=== PATIENT | female | born 1945 | race Caucasian/White ===

== ENCOUNTER 2016-03-13 09:35 | Day surgery (SDC) | payer MEDICARE, MEDICAID ==
[~2016-03-13] VITALS: Ht 167.6 cm; Wt 89.6 kg
[~2016-03-13 09:35] MED LIST: ASPIRIN 81M81 MG/TA2 PO; ATENOLOL50 MG PO; BACTROBAN NASA0.9 GM NS; BENADRYL25 M2 PO; BIOTIN1000 MCG PO; CALCIUM1 CAP PO; CELEXA10 MG PO; CEPHALEXIN500 M1 PO; CIPRO 500MG TA500 MG PO; CLONAZEPAM1 MG PO; COMBIVENT INH14.7 GM IH; DALIRESP500 MCG PO; DHEA50 M1 PO; FAMILY PHARMACY99 MG PO; FIORICET 325 MG1 TA1 PO; FIORINAL 325 MG1 CAP PO; FIORINAL PO; FLONASE NASAL S16 GM NS; IBU800 M1 PO; IMITREX50 MG PO; IMODIUM 2MG CAPS2 MG PO; IMODIUM A-D2 M1 PO; KLONOPIN2 MG PO; KLOR-CON 1010 MEQ PO; LACTOSE 260 MG1 CAP PO; LATUDA80 MG PO; LEVOTHYROXIN0.025 MG PO; LIDODERM 5% PATC1 EA TP; LIPITOR 10MG10 MG PO; LIPITOR20 MG PO; MELATONIN1 MG PO; MICRO-K 1010 MEQ PO; MINOCIN 50M50 MG/CAP PO; MONUROL 3 GM3 G/PKT PO; MUCINEX 60600 MG/TA1 PO; MULTIPLE VITAMI1 CAP PO; NASONEX SPRAY17 GM NS; NEURONTIN300 MG/CAP PO; NORCO 325 MG-51 TAB PO; OMEPRAZOLE20 MG PO; PHARMASSURE ZIN50 MG PO; PRIL40 PO; PRILOSEC 20MG20 MG PO; PROVENTIL0.09 MG/A1 IH; REMERON30 MG PO; RT SPIRIVA18 MCG IH; SEROQUEL 1100 MG/TAB PO; SEROQUEL 2525 MG/TAB PO; SEROQUEL300 MG PO; SERTRALINE25 MG PO; SINGULAIR 110 MG/TAB PO; SYMMETREL100 M1 PO; SYNTHROID 0.0.025 MG PO; SYNTHROID0.1 MG/TAB PO; SYNTHROID0.112 MG/T PO; SYNTHROID0.175 MG PO; TOPAMAX200 MG PO; UNABLE; VALERIAN500 MG PO; VITAMIN B COMPL1 TA1 PO; VOLTAREN GEL 1%1 TU TP; ZESTRIL 5MG5 MG PO; ZOLOFT 50MG50 MG PO; [UNRECOGNIZED DRUG - OTHER] PO; [UNRECOGNIZED DRUG - OTHER] PO; [UNRECOGNIZED DRUG - OTHER] PO
[2016-03-13 10:02] VITALS: BP 151/86; PULSE 73; TEMP 97.3
[2016-03-13 11:10] VITALS: BP 132/61; PULSE 72
[2016-03-13 11:25] VITALS: BP 136/61; PULSE 70
[2016-03-13 11:40] VITALS: BP 134/61; PULSE 73
[2016-03-13 11:55] VITALS: BP 149/64; PULSE 70
== END 2016-03-13 12:05 | disposition home or self-care (01) ==
LOC: SDCO 09:35
DX: R05 Cough (principal); R09.89 Other specified symptoms and signs involving the circulatory and respiratory systems; R06.02 Shortness of breath; F17.210 Nicotine dependence, cigarettes, uncomplicated; G47.33 Obstructive sleep apnea (adult) (pediatric)
CPT/HCPCS: J2704; J7030

== ENCOUNTER 2016-03-28 08:47 | Day surgery (SDC) | payer MEDICARE, MEDICAID ==
[~2016-03-28] VITALS: Ht 167.6 cm; Wt 88.2 kg
[2016-03-28 09:35] VITALS: BP 110/46; PULSE 79; TEMP 97.7
[2016-03-28] MEDS ORDERED: SYNTHROID0.125 MG/T PO (09:40)
[2016-03-28] MEDS ORDERED: KLONOPIN 1MG1 MG PO (09:41)
[2016-03-28] MEDS ORDERED: ZANAFLEX2 MG PO (09:42)
[2016-03-28] MEDS ORDERED: DITROPAN XL 5MG5 M1 PO (09:48)
[2016-03-28] MEDS ORDERED: CELEXA10 MG PO (09:49)
[2016-03-28] MEDS ORDERED: NASONEX SPRAY17 GM NS (09:49)
[2016-03-28] MEDS ORDERED: SPIRIVA RE2.5 MCG/Ac IH (09:50)
[2016-03-28] MEDS ORDERED: COMBIRESP IH (09:51)
[2016-03-28] MEDS ORDERED: CENTRUM SILVER1 TAB PO (09:53)
[2016-03-28] MEDS ORDERED: MILK THISTLE E140 M1 PO (09:54)
[2016-03-28] MEDS ORDERED: MELATONIN5 M1 SL (09:54)
[2016-03-28] MEDS ORDERED: HYDROCHLORIDE PO (09:56)
[2016-03-28] MEDS ORDERED: ANUSOL HC CREAM30 GM TP (09:56)
[2016-03-28] MEDS ORDERED: ORAL PAIN REL9.35 GM MM (09:57)
[2016-03-28] MEDS ORDERED: [UNRECOGNIZED DRUG - OTHER] TP (10:05)
[2016-03-28] MEDS ORDERED: DESENEX21 TOP (10:06)
[2016-03-28] MEDS ORDERED: TYLENOL PM EXTR1 TA1 PO (10:07)
[2016-03-28] MEDS ORDERED: BENADRYL ALLERG25 M2 PO (10:07)
[2016-03-28 10:55] VITALS: BP 106/59; PULSE 77; TEMP 97.6
[2016-03-28 11:10] VITALS: BP 100/68; PULSE 83
[2016-03-28 11:25] VITALS: BP 111/63; PULSE 79
[2016-03-28 11:40] VITALS: BP 94/57; PULSE 79
== END 2016-03-28 12:10 | disposition home or self-care (01) ==
LOC: SDCO 08:47
DX: R05 Cough (principal); R06.00 Dyspnea, unspecified; R09.89 Other specified symptoms and signs involving the circulatory and respiratory systems; G47.33 Obstructive sleep apnea (adult) (pediatric); F17.210 Nicotine dependence, cigarettes, uncomplicated
CPT/HCPCS: J0456; J2704; J2920; J7050

== ENCOUNTER → 2016-04-27 | Outpatient (CLI) | payer MEDICARE, MEDICAID ==
[~2016-04-27] MED LIST changes: +ANUSOL HC CREAM30 GM TP; +BENADRYL ALLERG25 M2 PO; +CENTRUM SILVER1 TAB PO; +COMBIRESP IH; +DESENEX21 TOP; +DITROPAN XL 5MG5 M1 PO; +FLONASEALLERGY NAS; +HYDROCHLORIDE PO; +INVANZ INJ1 G/VIAL IV; +KLONOPIN 1MG1 MG PO; +MELATONIN5 M1 SL; +MILK THISTLE E140 M1 PO; +ORAL PAIN REL9.35 GM MM; +SEROQUEL 200MG200 MG PO; +SPIRIVA RE2.5 MCG/Ac IH; +SYNTHROID0.125 MG/T PO; +TYLENOL PM EXTR1 TA1 PO; +ZANAFLEX2 MG PO; +[UNRECOGNIZED DRUG - OTHER] TP
== END ==
LOC: COL.RAD 15:23
DX: J44.1 Chronic obstructive pulmonary disease with (acute) exacerbation (principal); R91.8 Other nonspecific abnormal finding of lung field; I51.7 Cardiomegaly

== ENCOUNTER 2016-06-28 16:11 | Observation (INO) | payer MEDICARE, MEDICAID ==
[~2016-06-28] VITALS: Ht 167.6 cm; Wt 89.2 kg
[~2016-06-28 16:11] MED LIST changes: -FLONASEALLERGY NAS; -INVANZ INJ1 G/VIAL IV; -SEROQUEL 200MG200 MG PO
[2016-06-28 16:59] LABS: BASO # 0.1 (0.0-0.2); BASO % 0.7 % (0.0-2.0); EOS # 0.4 (0.0-0.7); EOS % 4.6 % (0-4.0); GRAN # 4.9 (1.4-6.5); GRAN % 56.8 % (42.2-75.2); HEMATOCRIT 36.6 % (37.0-47.0); HEMOGLOBIN 11.3 g/dl (12.5-16.0); LYMPH # 2.8 (1.2-3.4); LYMPH % 32.4 % (20.0-51.0); MEAN CELL VOLUME 92 fl (80.0-100.0); MEAN CORPUSCULAR HEMOGLOBIN 28 pg (27.0-31.0); MEAN CORPUSCULAR HGB CONC 31 g/dl (33.0-37.0); MEAN PLATELET VOLUME 10.9 fl (7.4-10.4); MONO # 0.5 (0.1-0.6); MONO % 5.3 % (1.7-9.3); PLATELET COUNT 242 K/mm3 (130-400); RED BLOOD COUNT 3.98 M/mm3 (4.10-5.30); REDCELL DISTRIBUTION WIDTH-CV 15.9 % (11.5-14.5); WHITE BLOOD COUNT 8.7 K/mm3 (4.8-10.8)
[2016-06-28 17:10] LABS: ADJUSTED CALCIUM 9.2 mg/dL (8.4-10.2); ALANINE AMINOTRANSFERASE 27 U/L (9-52); ALBUMIN 3.7 gm/dL (3.5-5.0); ALKALINE PHOSPHATASE 81 U/L (50-136); ANION GAP 10 mmol/L (7-16); BILIRUBIN,TOTAL 0.5 mg/dL (0.0-1.0); BLOOD UREA NITROGEN 20 mg/dL (7-17); CARBON DIOXIDE 27 mmol/L (22-30); CHLORIDE 103 mmol/L (98-107); CREATININE, serum 0.99 mg/dL (0.52-1.25); GLUCOSE 136 mg/dL (74-106); MAGNESIUM 1.6 mg/dL (1.6-2.3); POTASSIUM 3.6 mmol/L (3.4-5.0); SODIUM 140 mmol/L (137-145); TOTAL PROTEIN 6.5 gm/dL (6.4-8.2)
[2016-06-28 17:18] LABS: B-TYPE NATRIURETIC PEPTIDE 1070 pg/mL (0-125)
[2016-06-28 17:29] LABS: PH 5 (5-8); SQUAMOUS EPITHELIAL 0-2 /hpf; URINE APPEARANCE Hazy; URINE BACTERIA Rare /hpf; URINE BILIRUBIN Negative (NEGATIVE); URINE BLOOD Negative (NEGATIVE); URINE COLOR Yellow; URINE GLUCOSE Negative (NEGATIVE); URINE KETONE Negative (NEGATIVE); URINE RBC 0-2 /hpf; URINE UROBILINOGEN Negative (NEGATIVE); URINE WBC >50 /hpf
[2016-06-28 18:02] LABS: AMPHETAMINE URINE POSITIVE; BARBITURATES URINE NEGATIVE; BENZODIAZEPINES URINE NEGATIVE; BUPRENORPHINE URINE NEGATIVE; METHADONE URINE NEGATIVE; OPIATES URINE NEGATIVE; OXYCODONE URINE POSITIVE; PHENCYCLIDINE URINE NEGATIVE; PROPOXYPHENE URINE NEGATIVE; THC CANNABINOIDS URINE NEGATIVE
[2016-06-28] MEDS ORDERED: ASPIRIN 81M81 MG/TA2 PO (20:33)
[2016-06-28] MEDS ORDERED: FLONASEALLERGY NAS (20:35)
[2016-06-28 20:53] VITALS: BP 149/60; PULSE 71; TEMP 98.4
[2016-06-29 00:06] VITALS: BP 102/50; PULSE 73; TEMP 98.2
[2016-06-29 04:20] VITALS: BP 148/74; PULSE 88; TEMP 98.5
[2016-06-29 07:25] LABS: BASO # 0.1 (0.0-0.2); BASO % 0.7 % (0.0-2.0); EOS # 0.4 (0.0-0.7); EOS % 5.3 % (0-4.0); GRAN # 4.7 (1.4-6.5); GRAN % 56.5 % (42.2-75.2); LYMPH # 2.5 (1.2-3.4); LYMPH % 30.3 % (20.0-51.0); MEAN CELL VOLUME 93 fl (80.0-100.0); MEAN CORPUSCULAR HGB CONC 31 g/dl (33.0-37.0); MEAN PLATELET VOLUME 11.3 fl (7.4-10.4); MONO # 0.6 (0.1-0.6); PLATELET COUNT 235 K/mm3 (130-400); RED BLOOD COUNT 3.66 M/mm3 (4.10-5.30); REDCELL DISTRIBUTION WIDTH-CV 16.2 % (11.5-14.5); WHITE BLOOD COUNT 8.3 K/mm3 (4.8-10.8)
[2016-06-29 07:41] LABS: HEMOGLOBIN 10.4 g/dl (12.5-16.0); MEAN CORPUSCULAR HEMOGLOBIN 28 pg (27.0-31.0)
[2016-06-29 07:48] LABS: CREATININE, serum 0.96 mg/dL (0.52-1.25); POTASSIUM 3.9 mmol/L (3.4-5.0)
[2016-06-29 07:58] VITALS: BP 153/83; PULSE 83; TEMP 98.2
[2016-06-29 12:04] VITALS: BP 125/54; PULSE 102
[2016-06-29 15:41] VITALS: BP 102/82; PULSE 90; TEMP 98.2
[2016-06-29] MEDS ORDERED: NEURONTIN300 MG/CAP PO (15:57)
[2016-06-29] MEDS ORDERED: SEROQUEL 200MG200 MG PO (15:57)
[2016-06-29] MEDS ORDERED: INVANZ INJ1 G/VIAL IV (16:31)
== END 2016-06-29 18:45 | disposition home or self-care (01) ==
LOC: COL.ER 16:11 → MEDICAL 16:37
PROVIDERS: Emergency Medicine; Nurse Practitioner Family
DX: R26.0 Ataxic gait (principal); R47.81 Slurred speech; N39.0 Urinary tract infection, site not specified; D64.9 Anemia, unspecified; J44.9 Chronic obstructive pulmonary disease, unspecified; I10 Essential (primary) hypertension; E03.9 Hypothyroidism, unspecified; G20 Parkinson's disease; F31.9 Bipolar disorder, unspecified; Z87.440 Personal history of urinary (tract) infections; G25.81 Restless legs syndrome; F15.90 Other stimulant use, unspecified, uncomplicated; F19.90 Other psychoactive substance use, unspecified, uncomplicated; F11.90 Opioid use, unspecified, uncomplicated
CPT/HCPCS: 90791-AI; G0378; J0696; J2185; J7030

== ENCOUNTER 2016-07-05 12:00 | Outpatient (RCR) | payer MEDICARE, MEDICAID ==
[2016-07-02 12:15] VITALS: BP 133/97; PULSE 75; TEMP 97.7
[2016-07-03 11:48] VITALS: BP 131/71; PULSE 81; TEMP 98.1
[2016-07-04 11:46] VITALS: BP 130/65; PULSE 77; TEMP 97.5
[~2016-07-05] VITALS: Ht 167.6 cm; Wt 88.0 kg
[~2016-07-05 12:00] MED LIST changes: +FLONASEALLERGY NAS; +INVANZ INJ1 G/VIAL IV; +SEROQUEL 200MG200 MG PO
[2016-07-05 12:30] VITALS: BP 122/68; PULSE 70; TEMP 97.9
== END 2016-07-05 13:33 | disposition home or self-care (01) ==
LOC: EUO 12:00
DX: Z16.12 Extended spectrum beta lactamase (ESBL) resistance (principal)
CPT/HCPCS: J1335

== ENCOUNTER 2016-07-09 16:15 | Emergency (ER) | payer MEDICARE, MEDICAID ==
[~2016-07-09] VITALS: Ht 167.6 cm; Wt 88.6 kg
[2016-07-09 16:16] VITALS: TEMP 98.8
[2016-07-09 16:52] LABS: BASO # 0.1 (0.0-0.2); BASO % 0.7 % (0.0-2.0); EOS # 0.4 (0.0-0.7); EOS % 4.8 % (0-4.0); GRAN # 4.1 (1.4-6.5); GRAN % 56.5 % (42.2-75.2); LYMPH # 2.1 (1.2-3.4); LYMPH % 28.8 % (20.0-51.0); MEAN CELL VOLUME 90 fl (80.0-100.0); MEAN CORPUSCULAR HGB CONC 32 g/dl (33.0-37.0); MEAN PLATELET VOLUME 11.1 fl (7.4-10.4); MONO # 0.7 (0.1-0.6); MONO % 8.9 % (1.7-9.3); PLATELET COUNT 242 K/mm3 (130-400); RED BLOOD COUNT 3.69 M/mm3 (4.10-5.30); REDCELL DISTRIBUTION WIDTH-CV 16.2 % (11.5-14.5); WHITE BLOOD COUNT 7.3 K/mm3 (4.8-10.8)
[2016-07-09 16:53] LABS: PROTHROMBIN TIME 10.9 SECONDS (9.7-12.8)
[2016-07-09 16:59] LABS: HEMATOCRIT 33.2 % (37.0-47.0); HEMOGLOBIN 10.5 g/dl (12.5-16.0); MEAN CORPUSCULAR HEMOGLOBIN 28 pg (27.0-31.0)
[2016-07-09 17:06] LABS: ADJUSTED CALCIUM 9.2 mg/dL (8.4-10.2); ALANINE AMINOTRANSFERASE 25 U/L (9-52); ALBUMIN 3.8 gm/dL (3.5-5.0); ALKALINE PHOSPHATASE 101 U/L (50-136); ANION GAP 12 mmol/L (7-16); BILIRUBIN,TOTAL 0.5 mg/dL (0.0-1.0); BLOOD UREA NITROGEN 28 mg/dL (7-17); C-REACTIVE PROTEIN 1.1 mg/dL (0.0-0.9); CARBON DIOXIDE 26 mmol/L (22-30); CHLORIDE 103 mmol/L (98-107); CREATININE, serum 1.02 mg/dL (0.52-1.25); GLUCOSE 82 mg/dL (74-106); POTASSIUM 4.2 mmol/L (3.4-5.0); SODIUM 141 mmol/L (137-145); TOTAL PROTEIN 6.6 gm/dL (6.4-8.2)
[2016-07-09 17:18] LABS: TROPONIN-I < 0.012 ng/mL (0.000-0.034)
[2016-07-09 17:58] LABS: PH 6 (5-8); SQUAMOUS EPITHELIAL None Seen /hpf; URINE APPEARANCE Clear; URINE BACTERIA None Seen /hpf; URINE BILIRUBIN Negative (NEGATIVE); URINE BLOOD Negative (NEGATIVE); URINE COLOR Yellow; URINE GLUCOSE Negative (NEGATIVE); URINE KETONE Negative (NEGATIVE); URINE RBC 0-2 /hpf; URINE UROBILINOGEN Negative (NEGATIVE); URINE WBC 0-2 /hpf
[2016-07-09 18:12] LABS: AMPHETAMINE URINE POSITIVE; BARBITURATES URINE NEGATIVE; BENZODIAZEPINES URINE NEGATIVE; BUPRENORPHINE URINE NEGATIVE; METHADONE URINE NEGATIVE; OPIATES URINE NEGATIVE; OXYCODONE URINE NEGATIVE; PHENCYCLIDINE URINE NEGATIVE; PROPOXYPHENE URINE NEGATIVE; THC CANNABINOIDS URINE NEGATIVE
[2016-07-09 18:24] VITALS: BP 116/80; PULSE 76
== END 2016-07-09 18:44 | disposition home or self-care (01) ==
LOC: COL.ER 16:15
PROVIDERS: Emergency Medicine
DX: F15.10 Other stimulant abuse, uncomplicated (principal); I10 Essential (primary) hypertension; J44.9 Chronic obstructive pulmonary disease, unspecified; F31.9 Bipolar disorder, unspecified; F17.210 Nicotine dependence, cigarettes, uncomplicated
CPT/HCPCS: J7030

== ENCOUNTER → 2016-12-19 | Outpatient (CLI) | payer MEDICARE, MEDICAID ==
[2016-12-19 16:26] LABS: ADJUSTED CALCIUM 8.9 mg/dL (8.4-10.2); ALBUMIN 3.5 gm/dL (3.5-5.0); BILIRUBIN,TOTAL 0.6 mg/dL (0.0-1.0); CALCIUM 8.5 mg/dL (8.4-10.2); CHOLESTEROL RISK RATIO 2.4; CREATININE, serum 0.92 mg/dL (0.52-1.25); POTASSIUM 4.4 mmol/L (3.4-5.0); TOTAL PROTEIN 6.4 gm/dL (6.4-8.2)
== END ==
LOC: COL.LAB 12:35
PROVIDERS: Registered Nurse
DX: Z11.59 Encounter for screening for other viral diseases (principal); E78.5 Hyperlipidemia, unspecified; G89.29 Other chronic pain

== ENCOUNTER 2017-05-20 12:46 | Emergency (ER) | payer MEDICARE ==
[~2017-05-20] VITALS: Ht 167.6 cm; Wt 100.0 kg
[2017-05-20 12:55] VITALS: TEMP 97.9
[2017-05-20 13:20] LABS: BASO # 0.1 (0.0-0.2); BASO % 0.6 % (0.0-2.0); EOS # 0.3 (0.0-0.7); EOS % 1.9 % (0-4.0); GRAN # 10.9 (1.4-6.5); GRAN % 70.6 % (42.2-75.2); HEMATOCRIT 41.3 % (37.0-47.0); HEMOGLOBIN 13.1 g/dl (12.5-16.0); LYMPH % 19.7 % (20.0-51.0); MEAN CELL VOLUME 92 fl (80.0-100.0); MEAN CORPUSCULAR HEMOGLOBIN 29 pg (27.0-31.0); MEAN CORPUSCULAR HGB CONC 32 g/dl (33.0-37.0); MEAN PLATELET VOLUME 11.4 fl (7.4-10.4); MONO % 6.7 % (1.7-9.3); PLATELET COUNT 301 K/mm3 (130-400); RED BLOOD COUNT 4.51 M/mm3 (4.10-5.30); REDCELL DISTRIBUTION WIDTH-CV 15.7 % (11.5-14.5)
[2017-05-20 13:40] LABS: ALANINE AMINOTRANSFERASE 30 U/L (9-52); ALKALINE PHOSPHATASE 100 U/L (50-136); ANION GAP 10 mmol/L (7-16); AST,SGOT 31 U/L (15-37); BILIRUBIN,TOTAL 0.2 mg/dL (0.0-1.0); BLOOD UREA NITROGEN 26 mg/dL (7-17); C-REACTIVE PROTEIN 0.6 mg/dL (0.0-0.9); CALCIUM 8.9 mg/dL (8.4-10.2); CARBON DIOXIDE 29 mmol/L (22-30); CHLORIDE 101 mmol/L (98-107); CREATININE, serum 0.93 mg/dL (0.52-1.25); GLUCOSE 99 mg/dL (74-106); LIPASE 89 U/L (23-300); POTASSIUM 4.3 mmol/L (3.4-5.0); SODIUM 140 mmol/L (137-145); TOTAL PROTEIN 6.8 gm/dL (6.4-8.2)
[2017-05-20 13:46] LABS: COLLECTION METHOD CLEAN CATCH
[2017-05-20 13:49] LABS: TROPONIN-I < 0.012 ng/mL (0.000-0.034)
[2017-05-20 13:54] LABS: PH 6 (5-8); SQUAMOUS EPITHELIAL 0-2 /hpf; URINE APPEARANCE Clear; URINE BACTERIA Many /hpf; URINE BILIRUBIN Negative (NEGATIVE); URINE BLOOD Negative (NEGATIVE); URINE COLOR Yellow; URINE GLUCOSE Negative (NEGATIVE); URINE KETONE Negative (NEGATIVE); URINE LEUKOCYTE ESTERASE Negative (NEGATIVE); URINE NITRATE Negative (NEGATIVE); URINE PROTEIN(semi-quant) Negative (NEGATIVE); URINE RBC 0-2 /hpf; URINE UROBILINOGEN Negative (NEGATIVE)
[2017-05-20 14:21] LABS: TRICYCLIC ANTIDEPRESS URINE NEGATIVE
[2017-05-20] MEDS ORDERED: OMNICEF 300MG300 MG PO (15:24)
[2017-05-20 16:27] VITALS: BP 129/73; PULSE 67
== END 2017-05-20 16:28 | disposition home or self-care (01) ==
LOC: COL.ER 12:46
PROVIDERS: Emergency Medicine
DX: N39.0 Urinary tract infection, site not specified (principal); R07.89 Other chest pain; F31.9 Bipolar disorder, unspecified; J44.9 Chronic obstructive pulmonary disease, unspecified; F17.210 Nicotine dependence, cigarettes, uncomplicated; Z79.82 Long term (current) use of aspirin; Z79.51 Long term (current) use of inhaled steroids
CPT/HCPCS: J0696; J1200; J7030; Q9967

== ENCOUNTER → 2017-06-06 | Outpatient (CLI) | payer MEDICARE ==
[~2017-06-06] MED LIST changes: +OMNICEF 300MG300 MG PO
[2017-06-06 16:51] LABS: BASO # 0.1 (0.0-0.2); BASO % 0.9 % (0.0-2.0); EOS # 0.3 (0.0-0.7); EOS % 3.7 % (0-4.0); GRAN # 5.8 (1.4-6.5); GRAN % 63.4 % (42.2-75.2); HEMATOCRIT 37.6 % (37.0-47.0); HEMOGLOBIN 12.3 g/dl (12.5-16.0); LYMPH # 2.4 (1.2-3.4); LYMPH % 25.8 % (20.0-51.0); MEAN CELL VOLUME 90 fl (80.0-100.0); MEAN CORPUSCULAR HEMOGLOBIN 29 pg (27.0-31.0); MEAN CORPUSCULAR HGB CONC 33 g/dl (33.0-37.0); MEAN PLATELET VOLUME 10.4 fl (7.4-10.4); MONO # 0.6 (0.1-0.6); PLATELET COUNT 252 K/mm3 (130-400); RED BLOOD COUNT 4.18 M/mm3 (4.10-5.30); REDCELL DISTRIBUTION WIDTH-CV 15.5 % (11.5-14.5)
[2017-06-06 17:01] LABS: ALBUMIN 3.7 gm/dL (3.5-5.0); BILIRUBIN,TOTAL 0.2 mg/dL (0.0-1.0); CREATININE, serum 0.99 mg/dL (0.52-1.25); POTASSIUM 4.1 mmol/L (3.4-5.0); TOTAL PROTEIN 6.9 gm/dL (6.4-8.2)
== END ==
LOC: COL.RAD 16:19
PROVIDERS: Registered Nurse
DX: E03.9 Hypothyroidism, unspecified (principal); I10 Essential (primary) hypertension; R06.02 Shortness of breath; R09.89 Other specified symptoms and signs involving the circulatory and respiratory systems; J44.1 Chronic obstructive pulmonary disease with (acute) exacerbation

== ENCOUNTER → 2017-06-07 | Outpatient (CLI) | payer MEDICARE | LOC: COL.VAS 14:25 | DX: I35.1 Nonrheumatic aortic (valve) insufficiency (principal); I37.1 Nonrheumatic pulmonary valve insufficiency; E03.9 Hypothyroidism, unspecified; I10 Essential (primary) hypertension; J44.1 Chronic obstructive pulmonary disease with (acute) exacerbation ==

== ENCOUNTER 2017-08-07 16:15 | Outpatient (RCR) | payer MEDICARE | END 2017-08-08 11:39 | disposition home or self-care (01) | LOC: WSOT 16:15 | DX: Z47.89 Encounter for other orthopedic aftercare (principal) | CPT/HCPCS: G8987-GO; G8988-GO; G8989-GO ==

== ENCOUNTER → 2017-10-22 | Outpatient (CLI) | payer MEDICARE ==
[2017-10-22 12:03] LABS: BASO # 0.1 (0.0-0.2); BASO % 0.7 % (0.0-2.0); EOS # 0.3 (0.0-0.7); GRAN # 4.9 (1.4-6.5); GRAN % 66.7 % (42.2-75.2); HEMATOCRIT 37.2 % (37.0-47.0); HEMOGLOBIN 11.5 g/dl (12.5-16.0); LYMPH # 1.6 (1.2-3.4); LYMPH % 22.4 % (20.0-51.0); MEAN CELL VOLUME 92 fl (80.0-100.0); MEAN CORPUSCULAR HEMOGLOBIN 29 pg (27.0-31.0); MEAN CORPUSCULAR HGB CONC 31 g/dl (33.0-37.0); MEAN PLATELET VOLUME 12.3 fl (7.4-10.4); MONO # 0.4 (0.1-0.6); MONO % 5.9 % (1.7-9.3); PLATELET COUNT 210 K/mm3 (130-400); RED BLOOD COUNT 4.03 M/mm3 (4.10-5.30); REDCELL DISTRIBUTION WIDTH-CV 15.9 % (11.5-14.5)
[2017-10-22 12:12] LABS: CHOLESTEROL RISK RATIO 2.5
== END ==
LOC: COL.LAB 10:39
PROVIDERS: Registered Nurse
DX: D50.8 Other iron deficiency anemias (principal); E78.5 Hyperlipidemia, unspecified; G25.81 Restless legs syndrome; R32 Unspecified urinary incontinence

== ENCOUNTER → 2017-10-22 | Outpatient (CLI) | payer MEDICARE ==
[2017-10-22 12:12] LABS: MAGNESIUM 1.7 mg/dL (1.6-2.3)
[2017-10-22 12:46] LABS: FERRITIN 19 ng/mL (11-264)
[2017-10-22 13:21] LABS: 1 HR GLUCOSE 133 mg/dL (90-160)
[2017-10-22 13:53] LABS: 1/2 HR GLUCOSE 109 mg/dL (100-170); FASTING GLUCOSE 82 mg/dL (70-110)
[2017-10-22 23:55] LABS: FOLATE (FOLIC ACID) 18.1 ng/mL (7.0-31.4)
== END ==
LOC: COL.LAB 10:30
PROVIDERS: Psychiatry & Neurology Neurology
DX: G62.9 Polyneuropathy, unspecified (principal); E53.9 Vitamin B deficiency, unspecified; E61.1 Iron deficiency; R73.01 Impaired fasting glucose

== ENCOUNTER 2018-05-14 16:25 | Emergency (ER) | payer MEDICARE, MEDICAID ==
[~2018-05-14] VITALS: Ht 167.6 cm; Wt 97.3 kg
[2018-05-14 17:17] LABS: BASO % 0.5 % (0.0-2.0); EOS # 0.2 (0.0-0.7); EOS % 3.2 % (0-4.0); GRAN # 4.5 (1.4-6.5); GRAN % 60.1 % (42.2-75.2); LYMPH # 1.9 (1.2-3.4); LYMPH % 25.8 % (20.0-51.0); MEAN CELL VOLUME 94 fl (80.0-100.0); MEAN CORPUSCULAR HGB CONC 31 g/dl (33.0-37.0); MONO # 0.8 (0.1-0.6); MONO % 10.1 % (1.7-9.3); PLATELET COUNT 234 K/mm3 (130-400); RED BLOOD COUNT 3.31 M/mm3 (4.10-5.30); REDCELL DISTRIBUTION WIDTH-CV 16.8 % (11.5-14.5)
[2018-05-14 17:22] LABS: HEMATOCRIT 31.1 % (37.0-47.0); HEMOGLOBIN 9.5 g/dl (12.5-16.0); MEAN CORPUSCULAR HEMOGLOBIN 29 pg (27.0-31.0)
[2018-05-14 17:32] LABS: ALANINE AMINOTRANSFERASE 13 U/L (9-52); ALBUMIN 3.4 gm/dL (3.5-5.0); ALKALINE PHOSPHATASE 83 U/L (50-136); ANION GAP 3 mmol/L (7-16); AST,SGOT 18 U/L (15-37); BILIRUBIN,TOTAL 0.1 mg/dL (0.0-1.0); BLOOD UREA NITROGEN 25 mg/dL (7-17); CALCIUM 8.7 mg/dL (8.4-10.2); CARBON DIOXIDE 32 mmol/L (22-30); CHLORIDE 103 mmol/L (98-107); CREATININE, serum 1.01 mg/dL (0.52-1.25); GLUCOSE 94 mg/dL (74-106); LIPASE 26 U/L (23-300); POTASSIUM 4.7 mmol/L (3.4-5.0); SODIUM 138 mmol/L (137-145); TOTAL PROTEIN 6.1 gm/dL (6.4-8.2)
[2018-05-14 17:41] LABS: TROPONIN-I < 0.012 ng/mL (0.000-0.035)
[2018-05-14 20:18] VITALS: BP 126/59; PULSE 77
== END 2018-05-14 20:18 | disposition home or self-care (01) ==
LOC: COL.ER 16:25
PROVIDERS: Emergency Medicine
DX: J44.9 Chronic obstructive pulmonary disease, unspecified (principal); I10 Essential (primary) hypertension; F17.210 Nicotine dependence, cigarettes, uncomplicated; F32.9 Major depressive disorder, single episode, unspecified; Z79.82 Long term (current) use of aspirin
CPT/HCPCS: Q9967

== ENCOUNTER → 2018-06-20 | Outpatient (CLI) | payer MEDICARE, MEDICAID | LOC: COL.RAD 13:15 | DX: J44.1 Chronic obstructive pulmonary disease with (acute) exacerbation (principal); I51.7 Cardiomegaly ==

== ENCOUNTER → 2018-06-20 | Outpatient (CLI) | payer MEDICARE, MEDICAID ==
[2018-06-20 13:56] LABS: ALBUMIN 3.8 gm/dL (3.5-5.0); BILIRUBIN,TOTAL 0.3 mg/dL (0.0-1.0); CALCIUM 8.8 mg/dL (8.4-10.2); CHOLESTEROL RISK RATIO 2.9; CREATININE, serum 0.84 (0.52-1.25); POTASSIUM 4.4 mmol/L (3.4-5.0); TOTAL PROTEIN 6.9 gm/dL (6.4-8.2)
== END ==
LOC: COL.LAB 13:17
PROVIDERS: Psychiatry & Neurology Psychiatry
DX: J44.9 Chronic obstructive pulmonary disease, unspecified (principal); I51.7 Cardiomegaly; Z79.899 Other long term (current) drug therapy

== ENCOUNTER → 2018-07-21 | Outpatient (CLI) | payer MEDICARE, MEDICAID | LOC: COL.PUL 10:55 | DX: R06.02 Shortness of breath (principal); F17.210 Nicotine dependence, cigarettes, uncomplicated ==

== ENCOUNTER 2018-10-15 13:00 | Outpatient (RCR) | payer MEDICARE, MEDICAID | END 2018-11-07 17:13 | disposition home or self-care (01) | LOC: WSPT 13:00 | DX: M15.0 Primary generalized (osteo)arthritis (principal); R29.898 Other symptoms and signs involving the musculoskeletal system ==

== ENCOUNTER 2019-04-27 13:10 | Outpatient (RCR) | payer OTHER, MEDICAID | END 2019-07-26 | disposition home or self-care (01) | LOC: WSST | DX: R13.10 Dysphagia, unspecified (principal) ==

== ENCOUNTER → 2019-05-05 | Outpatient (CLI) | payer MEDICARE, MEDICAID | LOC: COL.RAD 15:30 | DX: R13.10 Dysphagia, unspecified (principal) ==

== ENCOUNTER 2019-09-08 07:08 | Day surgery (SDC) | payer MEDICARE, MEDICAID ==
--- NOTE | 2019-09-08 07:19 | NUR ---
Patient ambulatory to room 6 and oriented to room. Urine drug screen obtained. Will await results prior to getting patient ready for surgery.
[2019-09-08 07:45] LABS: TRICYCLIC ANTIDEPRESS URINE POSITIVE
--- NOTE | 2019-09-08 07:59 | NUR ---
Urine drug screen noted to be positive. See report. Alfa Robertson CRNA and Dr. Ramachandran notified. Surgery will be canceled. Will await surgeon to talk with the patient.
--- NOTE | 2019-09-08 08:55 | NUR ---
Dr. Ramachandran here to talk with the patient. Surgery cancelled. Patient dismissed to home driven by friend. Taken to the front door per wheelchair.
== END 2019-09-08 08:55 | disposition home or self-care (01) ==
LOC: SDCO 07:08
PROVIDERS: Registered Nurse
DX: K43.9 Ventral hernia without obstruction or gangrene (principal); F20.5 Residual schizophrenia; F15.21 Other stimulant dependence, in remission; F17.210 Nicotine dependence, cigarettes, uncomplicated; J44.9 Chronic obstructive pulmonary disease, unspecified; E03.9 Hypothyroidism, unspecified; K21.9 Gastro-esophageal reflux disease without esophagitis; G47.33 Obstructive sleep apnea (adult) (pediatric); E78.5 Hyperlipidemia, unspecified; G20 Parkinson's disease; G25.81 Restless legs syndrome; F20.9 Schizophrenia, unspecified; Z88.3 Allergy status to other anti-infective agents; Z88.8 Allergy status to other drugs, medicaments and biological substances; G89.29 Other chronic pain; I12.9 Hypertensive chronic kidney disease with stage 1 through stage 4 chronic kidney disease, or unspecified chronic kidney disease; N18.3 Chronic kidney disease, stage 3 (moderate); Z79.82 Long term (current) use of aspirin; Z79.51 Long term (current) use of inhaled steroids; Z90.710 Acquired absence of both cervix and uterus; Z88.4 Allergy status to anesthetic agent; Z88.5 Allergy status to narcotic agent; Z53.8 Procedure and treatment not carried out for other reasons

== ENCOUNTER → 2020-11-11 | Outpatient (CLI) | payer MEDICARE, MEDICAID ==
[~2020-11-11] MED LIST changes: +MOTRIN 800800 MG/TAB PO
== END ==
LOC: COL.RAD 13:05
DX: R59.0 Localized enlarged lymph nodes (principal)

== ENCOUNTER 2020-12-16 13:59 | Emergency (ER) | payer MEDICARE, MEDICAID ==
[~2020-12-16] VITALS: Ht 167.6 cm; Wt 70.9 kg
[~2020-12-16 13:59] MED LIST changes: -MOTRIN 800800 MG/TAB PO
[2020-12-16 14:07] VITALS: BP 118/83; TEMP 98.5
[2020-12-16] MEDS ORDERED: MOTRIN 800800 MG/TAB PO (15:21)
[2020-12-16 15:37] VITALS: PULSE 88
== END 2020-12-16 15:37 | disposition home or self-care (01) ==
LOC: COL.ER 13:59
DX: M25.512 Pain in left shoulder (principal); I10 Essential (primary) hypertension; F17.210 Nicotine dependence, cigarettes, uncomplicated; Z79.899 Other long term (current) drug therapy; W19.XXXA Unspecified fall, initial encounter

== ENCOUNTER → 2021-04-06 | Outpatient (CLI) | payer MEDICARE, MEDICAID ==
[~2021-04-06] MED LIST changes: +MOTRIN 800800 MG/TAB PO
== END ==
LOC: COL.RAD 12:16
DX: M25.552 Pain in left hip (principal)

== ENCOUNTER → 2022-06-08 | Outpatient (CLI) | payer MEDICARE, MEDICAID ==
[~2022-06-08] MED LIST changes: +ADVIL200 MG PO; +B COMPLEX #11 TA1 PO; +CYMBALTA 60MG60 MG PO; +FLONASEALLERGY NS; +LIPITOR 40MG TA40 MG PO; +MIRAPEX0.25 MG PO; +MULTI VITAMINS1 TAB PO; +NORVASC 10MG10 MG PO; +SEROQUEL400 MG PO; +TOPROL XL 25MG25 MG PO; +ZITHROMAX 250M250 MG PO
== END ==
LOC: COL.RAD 10:43
DX: J44.9 Chronic obstructive pulmonary disease, unspecified (principal); I50.22 Chronic systolic (congestive) heart failure

== ENCOUNTER → 2023-05-30 | Outpatient (CLI) | payer MEDICARE, MEDICAID | LOC: COL.RAD 09:36 | DX: R59.1 Generalized enlarged lymph nodes (principal) ==